=== PATIENT | male | born 1970 | race Caucasian/White ===

== ENCOUNTER → 2019-12-25 08:11 | Outpatient (BNVA) | payer MEDICAID, SELFPAY | PROVIDERS: PCP Family Medicine; Referring Provider Family Medicine; Visit Provider Anesthesiology | DX: G89.4 Chronic pain syndrome (principal); M47.27 Other spondylosis with radiculopathy, lumbosacral region; M51.36 Other intervertebral disc degeneration, lumbar region | CPT/HCPCS: 99202 ==

== ENCOUNTER 2019-12-31 11:00 | Outpatient (RCR) | payer OTHER, SELFPAY | END 2019-12-31 23:55 | disposition home or self-care (01) | LOC: HO.PAOS 11:00 | PROVIDERS: Visit Provider Counselor Mental Health | DX: F43.8 Other reactions to severe stress (principal) ==

== ENCOUNTER 2020-04-30 10:29 | Day surgery (SDC) | payer MEDICAID, SELFPAY ==
[2020-03-23 09:26] VITALS: BMI 32.5
--- NOTE | 2020-04-29 10:24 | HO.ANESPROP2 ---
HPI - Anesthesia Eval Consult details Narrative: 49yo M for Lumbar Spinal Cord Simulation Trial PMFSH Active Problems Active Problems: All Active Problems (Updated 03/23/20 @ 09:29 by Jackie Bentley) Chronic pain syndrome (Acute) Spondylosis of lumbosacral spine with radiculopathy (Acute) Disc degeneration, lumbar (Acute) Past Medical History Medical History (Updated 03/23/20 @ 09:29 by Jackie Bentley) Chronic pain syndrome Disc degeneration, lumbar GERD (gastroesophageal reflux disease) History of headache History of postoperative nausea and vomiting Personal history of COVID-19 Spondylosis of lumbosacral spine with radiculopathy Surgical History Surgical History (Updated 03/23/20 @ 09:29 by Jackie Bentley) Hx laparoscopic cholecystectomy Social History Social History (Updated 03/23/20 @ 09:31 by Jackie Bentley) Household Members: Spouse and Children Alcohol intake: current Alcohol intake frequency: 0-2 drinks per day Alcohol type: beer Smoking Status: Never smoker Meds Allergies Allergy/AdvReac Type Severity Reaction Status Date / Time shellfish derived Allergy Intermediate Hives Verified 03/23/20 09:32 Home Medications Medication Instructions Recorded Confirmed Last Taken Type gabapentin 900 mg PO BEDTIME 03/23/20 03/23/20 Unknown History ibuprofen 800 mg PO Q6H PRN 03/23/20 03/23/20 03/02/20 History melatonin 10 mg PO BEDTIME 03/23/20 03/23/20 Unknown History omeprazole 20 mg PO BEDTIME 03/23/20 03/23/20 Unknown History tadalafil [Cialis] 210 mg PO 2XW 03/23/20 03/23/20 Unknown History verapamil 1 tab PO DAILY PRN 03/23/20 03/23/20 Unknown History Exam Exam Date and Time: April 29, 2020 1024 Height,Weight and Vital Signs: Height 5 ft 9 in Weight 99.79 kg Assessment and Plan Assessment Anesthesia Assessment: Chart Reviewed
--- NOTE | ~2020-04-30 | FL_ITS ---
EXAMINATION: XR FLUOROSCOPY WITH IMAGES CLINICAL INFORMATION: Spinal stimulator trial. COMPARISON: None. TECHNIQUE: Fluoroscopy performed by Dr. Jethro Simmons. Fluoroscopy time: 2.5 minutes DAP: 21.2 Gycm2 Images: 4 FINDINGS: There are two stimulator leads ascending the posterior spinal canal with tips at level mid/lower thoracic spine. No lead fracture or lead kinking in the field of view. There is a small round artifact overlying the images related to the fluoro unit or table. FL/FL guidance in OR IMPRESSION: Fluoroscopy for pain management procedure.
[2020-04-30 10:41] VITALS: BP 133/97; PULSE 71; RESP 18; TEMP 36.5; O2SAT 99
[2020-04-30] MEDS: Lactated Ringers 1,000 ML 100 ML IVCONT (10:55)
--- NOTE | 2020-04-30 11:19 | PM.OP ---
Brief Operative Note Date of Service: 04/30/20 Pre-op diagnosis: Spondylosis lumbar spine, chronic back pain Post-op diagnosis: same Procedure: Trial of Medtronic spinal cord stimulation Implants: None permanent Surgeon: Jethro Simmons MD Anesthesia: MAC Estimated blood loss (mL): 2 Pathology: none sent Condition: stable Disposition: PACU
--- NOTE | 2020-04-30 11:20 | MHC.SHP ---
Pre-Procedural Eval Section A The patient is an INPATIENT: No Changes since office visit: Yes Patient answered all questions The History & Physical has been completed within 30 days and I have reviewed it.: No Section B Chief Complaint: chronic pain syndrome Details of Present Illness: as above Relevant Family History (Specify if Yes): No Relevant Social History: None Present Medications: see Short Stay Collaborative assessment Medical History: No relevant PMH History of Previous Operations: No relevant previous surgery Allergies: Allergies Allergy/AdvReac Type Severity Reaction Status Date / Time shellfish derived Allergy Intermediate Hives Verified 03/23/20 09:32 Review of Systems Sugical H&P ROS: Negative: Constitution, Cardiovascular, Respiratory, Neurological, Psychiatric, Hem-Onc, Allergic/Immunologic, Gastrointestinal, Genitourinary, Musculoskeletal, Integumentary, Endocrine and Eyes/Ears/Nose/Throat Exam Surgical H&P Exam: Normal: HEENT, Normal: Heart, Normal: Lungs, Normal: Extremities, Normal: Abdomen, Normal: Skin and Normal: Neurological Plan Diagnosis/Plan: Unchanged I have reviewed the history and physical and performed a pertinent physical examination on my patient. No changes have occurred unless specified.
[2020-04-30 12:29] VITALS: BP 129/89; PULSE 73; RESP 14; TEMP 36.6; O2SAT 98
[2020-04-30] MEDS: Acetaminophen 325 MG TABLET 975 MG PO (12:36)
--- NOTE | 2020-04-30 12:42 | P.OP_ITS ---
Operative Note Operative Note Date of Service: 04/30/20 Narrative: Mr. Chong is very pleasant 49 years old gentleman who came to OR for the trial of SCS Medtronics in the attempt to treat spondylosis of the lumbar spine. After obtaining informed consent the patient was brought to the operating room, HE was positioned prone on operating table, [place] [employer] monitors were applied and patient was deeply sedated. Time-out was performed delineating correct site, side, the nature of the procedure, patient's allergy, preoperative antibiotic if needed. All operating room staff was participating in OR time-out procedure. He received preoperatively cefazolin 2 g IV approximately 20 minutes before the procedure. Patient's entire back was prepped with ChloraPrep twice and draped with full body fenestrated drape. Sterilely draped C-arm was brought over operating field and square picture of T12 L1 L2 vertebrae were demonstrated on the screen. Attention FIRST was concentrated on the L1-L2 right epidural interspace. The location of the projection of the right pedicle center of the L3 vertebra was found on the skin using C-arm. This location was injected with mixture of lidocaine 2% and Marcaine 0.5% 5 cc. After that 11 blade was used to make a pat on the skin. 10 cm 14 gauge curved introducer epidural needle was inserted through the pat and advanced to the epidural interspace. The advancement of the needle was performed on anterior-posterior and lateral views. Guitar wire and loss of resistance technique were used to locate epidural space. After that epidural electrode array was inserted through the needle in posterior fashion advanced to the T8 posterior epidural space slightly right to the midline. After that location of the projection of the LEFT pedicle center of the L3 vertebra was found on the skin using C-arm. This location was injected with mixture of lidocaine 2% and Marcaine 0.5% 5 cc. After that 11 blade was used to make a pat on the skin. 10 cm 14 gauge curved introducer epidural needle was inserted through the pat and advanced to L1-L2 epidural interspace. The advancement of the needle was performed on anterior posterior and lateral views. Guitar wire and loss of resistance technique were used to locate epidural space. When guitar wire was spread in the epidural fashion, epidural lead was inserted through the needle and advanced to the right epidural T8 posterior space slightly left to the midline. At this moment the epidural leads were connected to the testing device. Patient was awaken and reported stimulation corresponding to his pain. After satisfactory position of the leads were established the needles were withdrawn under x-ray control, the stylette wires were removed from the epidural leads. The anchoring devices were dislodged on the leads and advanced to the level of the skin. The anchoring devices were sutured with two 0-0 silk sutures to the skin of the patient . The leads were connected to testing device. Bacitracin ointment was applied to the entrance point of bilateral needles. Sterile dressing was applied to the patient's back. The testing device was also glued to the patient's back. Upon completion of the procedure the patient was taken to PACU where he recovered and UNEVENTFULLY, he WENT HOME WITHOUT IMMEDIATE COMPLICATIONS. He will continue to use ANTIBIOTICS: Cephalexin 500 mg 2 pills q.6 hours for the next 7 days.
[2020-04-30 12:44] VITALS: BP 108/73; PULSE 72; RESP 16; TEMP 36.6; O2SAT 98
[2020-04-30 12:56] VITALS: BP 126/78; PULSE 68; RESP 16; TEMP 36.6; O2SAT 98
[2020-04-30 13:15] VITALS: BP 128/84; PULSE 64; RESP 16; TEMP 36.6; O2SAT 96
[2020-04-30 13:36] VITALS: BP 125/86; PULSE 64; RESP 16; TEMP 36.6; O2SAT 98
== END 2020-04-30 14:25 | disposition home or self-care (01) ==
PROVIDERS: PCP Family Medicine; Visit Provider Anesthesiology
PROC: (CPT 63650; principal; 2020-04-30 12:00)
DX: M47.27 Other spondylosis with radiculopathy, lumbosacral region (principal); M51.36 Other intervertebral disc degeneration, lumbar region; G89.4 Chronic pain syndrome; Z86.16 Personal history of COVID-19; Z79.899 Other long term (current) drug therapy
CPT/HCPCS: 63650 ×2; C1787; C1897; J0690; J2250; J2405; J3010

== ENCOUNTER → 2020-05-06 13:26 | Outpatient (BNVA) | payer MEDICAID, SELFPAY | PROVIDERS: PCP Family Medicine; Visit Provider Anesthesiology | DX: M47.27 Other spondylosis with radiculopathy, lumbosacral region (principal); M51.36 Other intervertebral disc degeneration, lumbar region; G89.4 Chronic pain syndrome | CPT/HCPCS: 99212 ==

== ENCOUNTER 2020-05-14 06:14 | Day surgery (SDC) | payer MEDICAID, SELFPAY ==
--- NOTE | 2020-05-13 11:03 | HO.ANESPROP2 ---
Documented by User: Jessica Jung 05/13/20 11:06 HPI - Anesthesia Eval Consult details Narrative: 49yo M for Spinal Stimulation Implant,lumbar s/p trial 04/30/20 with MAC PMFSH Active Problems Active Problems: All Active Problems (Updated 03/23/20 @ 09:29 by Jackie Bentley) Chronic pain syndrome (Acute) Spondylosis of lumbosacral spine with radiculopathy (Acute) Disc degeneration, lumbar (Acute) Past Medical History Medical History Chronic pain syndrome Disc degeneration, lumbar GERD (gastroesophageal reflux disease) History of headache History of postoperative nausea and vomiting Personal history of COVID-19 Spondylosis of lumbosacral spine with radiculopathy Surgical History Surgical History Hx laparoscopic cholecystectomy Social History Social History Household Members: Spouse and Children Alcohol intake: current Alcohol intake frequency: 0-2 drinks per day Alcohol type: beer Smoking Status: Never smoker Use of substances other than those prescribed or required for medical reasons: No Have you been hit, kicked, punched, or otherwise hurt by someone within the past year? If so, by whom?: No Advance Directives: No Advance Directives Information Provided: Yes Recently lost weight without trying: No Meds Allergies Allergy/AdvReac Type Severity Reaction Status Date / Time shellfish derived Allergy Intermediate Hives Verified 05/06/20 13:32 Home Medications Medication Instructions Recorded Confirmed Last Taken Type gabapentin 900 mg PO BEDTIME 03/23/20 05/06/20 Unknown History ibuprofen 800 mg PO Q6H PRN 03/23/20 05/06/20 03/02/20 History melatonin 10 mg PO BEDTIME 03/23/20 05/06/20 Unknown History omeprazole 20 mg PO BEDTIME 03/23/20 05/06/20 Unknown History tadalafil [Cialis] 210 mg PO 2XW 03/23/20 05/06/20 Unknown History verapamil 1 tab PO DAILY PRN 03/23/20 05/06/20 Unknown History Exam Exam Date and Time: May 13, 2020 1103 Assessment and Plan Assessment Anesthesia Assessment: Chart Reviewed Documented by User: Fady Montes 05/14/20 07:03 PMFSH Past Medical History Medical History Chronic pain syndrome Disc degeneration, lumbar GERD (gastroesophageal reflux disease) History of headache History of postoperative nausea and vomiting Personal history of COVID-19 Spondylosis of lumbosacral spine with radiculopathy Surgical History Surgical History Hx laparoscopic cholecystectomy Social History Social History Household Members: Spouse and Children Alcohol intake: current Alcohol intake frequency: 0-2 drinks per day Alcohol type: beer Smoking Status: Never smoker Use of substances other than those prescribed or required for medical reasons: No Have you been hit, kicked, punched, or otherwise hurt by someone within the past year? If so, by whom?: No Advance Directives: No Advance Directives Information Provided: Yes Recently lost weight without trying: No Meds Allergies Allergy/AdvReac Type Severity Reaction Status Date / Time shellfish derived Allergy Intermediate Hives Verified 05/06/20 13:32 Home Medications Medication Instructions Recorded Confirmed Last Taken Type gabapentin 900 mg PO BEDTIME 03/23/20 05/06/20 Unknown History ibuprofen 800 mg PO Q6H PRN 03/23/20 05/06/20 03/02/20 History melatonin 10 mg PO BEDTIME 03/23/20 05/06/20 Unknown History omeprazole 20 mg PO BEDTIME 03/23/20 05/06/20 Unknown History tadalafil [Cialis] 210 mg PO 2XW 03/23/20 05/06/20 Unknown History verapamil 1 tab PO DAILY PRN 03/23/20 05/06/20 Unknown History Exam Airway Mallampati Class: II TM Dist: >3cm Neck ROM: Full
--- NOTE | ~2020-05-14 | FL_ITS ---
EXAMINATION: XR FLUOROSCOPY WITH IMAGES CLINICAL INFORMATION: Spinal stimulator implant COMPARISON: Previous exam 04/30/2020 TECHNIQUE: Fluoroscopy performed by Dr. Jethro Simmons. Fluoroscopy time: 3.5 minutes DAP: 23 mGycm2 Images: 3 FINDINGS: Fluoroscopy guidance was provided for spinal stimulator placement in the lower thoracic and upper lumbar spine. FL/FL guidance in OR IMPRESSION: Fluoroscopy guidance for spinal stimulator placement.
[2020-05-14 06:44] VITALS: BP 132/90; PULSE 74; RESP 18; TEMP 36.4; O2SAT 98; BMI 32.5
[2020-05-14] MEDS: Lactated Ringers 1,000 ML 100 ML IVCONT (07:10)
--- NOTE | 2020-05-14 07:15 | MHC.SHP ---
Pre-Procedural Eval Section B Chief Complaint: chronic pain Details of Present Illness: as above Relevant Family History (Specify if Yes): No Relevant Social History: None Present Medications: see Short Stay Collaborative assessment Medical History: No relevant PMH History of Previous Operations: No relevant previous surgery Allergies: Allergies Allergy/AdvReac Type Severity Reaction Status Date / Time shellfish derived Allergy Intermediate Hives Verified 05/06/20 13:32 Review of Systems Sugical H&P ROS: Negative: Constitution, Cardiovascular, Respiratory, Neurological, Psychiatric, Hem-Onc, Allergic/Immunologic, Gastrointestinal, Genitourinary, Musculoskeletal, Integumentary, Endocrine and Eyes/Ears/Nose/Throat Exam Surgical H&P Exam: Normal: HEENT, Normal: Heart, Normal: Lungs, Normal: Extremities, Normal: Abdomen, Normal: Skin and Normal: Neurological Plan Diagnosis/Plan: Unchanged I have reviewed the history and physical and performed a pertinent physical examination on my patient. No changes have occurred unless specified.
[2020-05-14 10:10] VITALS: BP 125/64; PULSE 91; RESP 11; TEMP 36.1; O2SAT 99
--- NOTE | 2020-05-14 10:11 | PM.OP ---
Brief Operative Note Date of Service: 05/14/20 Pre-op diagnosis: Chronic pain syndrome Post-op diagnosis: same Procedure: Implantation of Medtronic spinal cord stimulator Implants: SCS epidural leads and SCS [employer]tron[employer] spinal cord stimulator battery. Surgeon: Jethro Simmons MD Anesthesia: MAC Estimated blood loss (mL): 30 Pathology: none sent Disposition: PACU
--- NOTE | 2020-05-14 10:14 | P.OP_ITS ---
Operative Note Operative Note Date of Service: 05/14/20 Narrative: Mr. Scott is very pleasant 49 years old gentleman who came today into the operating room for implantation of spinal cord stimulator for the treatment of pain related to degenerative disc disease and chronic pain syndrome. He had successful trial of spinal cord stimulation. Preoperatively patient received 2 g cefazolin _approximately 30 minutes before the procedure. After obtaining informed consent patient was brought to the operating room, he was positioned prone on operating table, [place] [employer] monitors were applied and patient was deeply sedated. Time-out was performed delineating correct site, side, the nature of the procedure, patient's allergy, preoperative antibiotic. All operating room staff was participating in OR time-out procedure. Patient's entire back was prepped with ChloraPrep twice and draped with full body drape including Iob[place] film. Sterilely draped C-arm was brought over operating field and square picture of T12, L1, L2 vertebrae as were demonstrated on the screen. THE PROJECTION OF L2-L3 SPINAL PROCESSES TO THE SKIN WERE INFILTRATED WITH LIDOCAINE 2% MIXED WITH BUPIVACAINE 0.5%. Six CM LONG VERTICAL INCISION using a 10 blade scalpel WAS PERFORMED IN STRICT MIDLINE VERTICAL FASHION. THOROUGH HEMOSTASIS WAS PERFORMED using electrocautery and intermittent Vicryl sutures. Thorough tissue dissections was performed until prevertebral fascia was freed from overlying tissues. Attention FIRST was concentrated on the RIGHT L1-L2 epidural interspace. The location of the projection of the right pedicle center of the L3 vertebra was found on the prevertebral fascia using C-arm. This location was injected with mixture of lidocaine 2% and Marcaine 0.5% 5 cc in approximate direction of needle advancement.. After that 10 cm 14 gauge straight introducer epidural needle was inserted through the fascia and advanced toward L1-L2 epidural interspace. The advancement of the needle was performed on anterior posterior and lateral views. Guitar wire and loss of resistance technique were used to locate epidural space. When guitar wire was spread in the epidural fashion, epidural lead was inserted through the skin and it was advanced to T8 position POSTERIOR EPIDURAL SPACE slightly left TO THE MIDLINE. After that location of the projection of the LEFT pedicle center of the L3 vertebra was found -using C-arm. This location was injected with mixture of lidocaine 2% and Marcaine 0.5% 5 cc.. . 10 cm 14 gauge curved introducer epidural needle was inserted through the fascia and advanced to T12-L1 epidural interspace. The advancement of the needle was performed on anterior posterior and lateral views. Guitar wire and loss of resistance technique were used to locate epidural space. When guitar wire was spread in the epidural fashion, e pidural lead was inserted through the needle and advanced to the T9 POSTERIOR EPIDURAL SPACE SLIGHTLY right to the existing line .. THE LOCATION OF BOTH LEADS WAS VERIFIED ON ANTERIOR POSTERIOR AND LATERAL VIEWS. At this moment the patient was awaken and testing was performed. The patient responded well with both locations of the epidural leads. He reported stimulation in the projection of the lumbar spine as well as stimulation in the upper portion of his legs. It response to his pain. After satisfactory position of the leads were established the needles were withdrawn, the stylette wires were removed from the epidural leads. The anchoring devices were dislodged on the leads and advanced to the level of the skin. The anchoring devices were advanced along the epidural leads and disl odged and epidural leads at the level of prevertebral fascia. They were sutured to prevertebral fascia with 2 separate etibone sutures per each anchoring device. The fixating screws was fixed until 3 clicks were heard on each anchoring device. After that the wound was irrigated with copious amount of Vancomycin containing normal saline and packed with Vancomycin soaked 4 x 4. After that attention was concentrated on the right loin of the patient where he wanted battery to be implanted. 6 cm long horizontal incision was performed 3 cm below the lowest portion of the right 12th rib. Subcutaneous pocket was formed not deeper than 2 cm under the skin using dull dissection and electrocautery dissection. Thorough hemostasis was obtained. The wound was irrigated with copious amount of Vancomycin contained normal saline. Tunneling device was used to connect the 2 wounds and epidural leads were dislodged into side wound. They were connected to the Nevro battery and locked with a locking screwdriver device. Impedance was checked and appeared to be satisfactory. After that the anchoring sutures ethibond were applied in the most superior medial and most superior lateral corners of the wound. After that they were connected to the anchoring holes on the body of the battery, the epidural leads were gathered behind the body of the-battery, the battery and the leads were inserted into the pocket wound and after that the anchoring 2 sutures were tied. The wounds were irrigated again with Vancomycin containing normal saline, thorough hemostasis was checked, and after that the wounds were closed using 0 Vicryl. After that the skin edges wore approximated using 2 0 Vicryl, argenis were applied to the wounds at the level of the skin. Bacitracin ointment was applies to the level of the argenis and sterile dressings were applied to the staple lines. Medipore Tape was applied to hold the dressing to the patient's skin. Abdominal binder to wear was provided to the patient. At this moment patient was awaken and transferred to the bed. He was recovering uneventfully in PACU.
[2020-05-14] MEDS: Acetaminophen 325 MG TABLET 975 MG PO (10:20)
[2020-05-14 10:25] VITALS: BP 134/83; PULSE 74; RESP 20; O2SAT 100
[2020-05-14 10:40] VITALS: BP 126/60; PULSE 74; RESP 18; TEMP 36.3; O2SAT 99
== END 2020-05-14 11:39 | disposition home or self-care (01) ==
PROVIDERS: PCP Family Medicine; Visit Provider Anesthesiology
PROC: (CPT 63685; principal; 2020-05-14 07:30)
DX: G89.4 Chronic pain syndrome (principal); M47.27 Other spondylosis with radiculopathy, lumbosacral region; M51.16 Intervertebral disc disorders with radiculopathy, lumbar region; Z79.899 Other long term (current) drug therapy
CPT/HCPCS: 63685; 63650 ×2; C1778; C1787; C1820; J0690; J2250; J3010; J3370

== ENCOUNTER → 2020-05-20 10:17 | Outpatient (BNVA) | payer MEDICAID, SELFPAY | PROVIDERS: PCP Family Medicine; Visit Provider Anesthesiology | DX: M51.36 Other intervertebral disc degeneration, lumbar region (principal); M47.27 Other spondylosis with radiculopathy, lumbosacral region; G89.4 Chronic pain syndrome | CPT/HCPCS: 99212 ==

== ENCOUNTER → 2020-05-26 09:50 | Outpatient (BNVA) | payer MEDICAID, SELFPAY | PROVIDERS: PCP Family Medicine; Visit Provider Anesthesiology | DX: M51.36 Other intervertebral disc degeneration, lumbar region (principal); M47.27 Other spondylosis with radiculopathy, lumbosacral region; G89.4 Chronic pain syndrome; Z79.899 Other long term (current) drug therapy | CPT/HCPCS: 99212 ==

== ENCOUNTER 2020-06-09 13:04 | Outpatient (REF) | payer MEDICAID, SELFPAY ==
[2020-06-09 14:12] LABS: MANUAL DIFF FLAG NO
[2020-06-09 14:20] LABS: Basophils Percent Auto 0.3 % (0-2); Eosinophils Absolute Auto 0.3 X10*3/uL (0.0-0.4); Eosinophils Percent Auto 3.2 % (0-4); Hematocrit 44.4 % (42-52); Hemoglobin 14.8 g/dl (14.0-18.0); Imm Gran Abs Auto 0.02 X10*3/uL (0.00-0.03); Imm Gran Pct Auto 0.3 % (0.0-0.4); Lymphocytes Absolute Auto 2.5 X10*3/uL (1.2-4.9); Lymphocytes Percent Auto 31.3 % (20-40); Mean Corpuscular HGB Conc 33.3 g/dl (31.0-36.0); Mean Corpuscular Hemoglobin 28.7 pg (27.0-33.0); Mean Platelet Volume 9.7 fL (9.4-12.4); Monocytes Absolute Auto 0.8 X10*3/uL (0.1-1.2); Neutrophils Absolute Auto 4.4 X10*3/uL (2.0-8.3); Neutrophils Percent Auto 54.9 % (45-73); Platelet Count 312 X10*3/uL (160-400); Red Blood Count 5.16 X10*6/uL (4.60-5.80); Red Cell Distribution Width 12.1 % (11.0-16.0); White Blood Count 7.9 X10*3/uL (4.8-10.8)
[2020-06-09 14:38] LABS: Blood Urea Nitrogen 12 mg/dL (9-16); Estimated Glomerular Filt Rate > 60
== END 2020-06-09 13:05 | disposition home or self-care (01) ==
LOC: HO.LAB 13:04
PROVIDERS: PCP Family Medicine; Visit Provider Anesthesiology
DX: S06.4X9A Epidural hemorrhage with loss of consciousness of unspecified duration, initial encounter (principal); M79.606 Pain in leg, unspecified; G89.4 Chronic pain syndrome; M47.27 Other spondylosis with radiculopathy, lumbosacral region; M51.36 Other intervertebral disc degeneration, lumbar region; R33.9 Retention of urine, unspecified; Z79.899 Other long term (current) drug therapy
CPT/HCPCS: 36415; 82565; 84520; 85025; 99212

== ENCOUNTER 2020-06-10 18:45 | Outpatient (REF) | payer MEDICAID, SELFPAY ==
--- NOTE | ~2020-06-10 | MR_ITS ---
EXAMINATION: MR LUMBAR SPINE WITHOUT AND WITH CONTRAST CLINICAL INFORMATION: Pain and leg, unspecified. COMPARISON: None TECHNIQUE: MRI of the lumbar spine was obtained using routine sequences without and with intravenous contrast. A total of 10 mL Gadavist was intravenously administered. Patient has an MRI safe stimulator in place. FINDINGS: Lumbar vertebral bodies maintain normal heights and alignment. The disc heights are preserved. No bone marrow edema is seen. A spinal cord stimulator is seen entering the spinal canal at the L1-L2 level and travels the dorsal aspect of the spinal canal. The distal spinal cord is grossly normal in signal. The conus medullaris terminates normally at the L1 level. No abnormal enhancement is seen within the thecal sac. Allowing for the postoperative changes the extraspinal soft tissues are unremarkable. SPINAL LEVELS: L1-L2: Right paracentral protrusion focally indenting the ventral thecal sac without causing significant narrowing the spinal canal. No neural foraminal stenosis. L2-L3: Central annular fissuring. No spinal canal or neural foraminal stenosis. L3-L4: No posterior disc abnormality. No spinal canal or neural foraminal stenosis. L4-L5: Mild disc bulging. Minimal narrowing of the left neural foramen. No spinal canal stenosis. L5-S1: No posterior disc abnormality. Mild facet arthropathy. No spinal canal or neural foraminal stenosis. MR/MR lumbar spine wo/w con IMPRESSION: Spinal cord stimulator in place. Right paracentral protrusion seen at L1-L2 without associated narrowing of the spinal canal. Annular fissuring seen at L2-L3. No nerve root compression is noted. No abnormal enhancement.
== END 2020-06-10 18:46 | disposition home or self-care (01) ==
LOC: HO.MRI 18:45
PROVIDERS: Visit Provider Anesthesiology
DX: S06.4X9A Epidural hemorrhage with loss of consciousness of unspecified duration, initial encounter (principal); M79.606 Pain in leg, unspecified; R33.9 Retention of urine, unspecified
CPT/HCPCS: 72158; A9585

== ENCOUNTER 2020-06-16 10:59 | Outpatient (REF) | payer MEDICAID, SELFPAY ==
--- NOTE | ~2020-06-16 | XR_ITS ---
EXAMINATION: XR THORACIC SPINE CLINICAL INFORMATION: Chronic pain syndrome COMPARISON: None TECHNIQUE: 3 views of the thoracic spine were obtained. FINDINGS: There is no fracture or bone destruction seen and the vertebral alignment is normal. There is no disc space narrowing. Small endplate osteophytes present throughout the thoracic spine. There is no abnormality of the paraspinal soft tissues. Epidural spinal stimulator leads terminating within the dorsal epidural space at the level of T8/T9. XR/XR thoracic spine 3V IMPRESSION: No acute findings. Small endplate osteophytes present throughout the thoracic spine.
== END 2020-06-16 11:00 | disposition home or self-care (01) ==
LOC: HO.XRAY 10:59
PROVIDERS: PCP Family Medicine; Visit Provider Anesthesiology
DX: G89.4 Chronic pain syndrome (principal); M47.27 Other spondylosis with radiculopathy, lumbosacral region; M51.36 Other intervertebral disc degeneration, lumbar region; M79.662 Pain in left lower leg; M79.661 Pain in right lower leg; R33.9 Retention of urine, unspecified; Z91.013 Allergy to seafood; Z86.19 Personal history of other infectious and parasitic diseases
CPT/HCPCS: 72072; 99212

== ENCOUNTER 2020-07-06 10:33 | Outpatient (REF) | payer MEDICAID, SELFPAY ==
--- NOTE | ~2020-07-06 | US_ITS ---
EXAMINATION: US VENOUS ULTRASOUND WITH DOPPLER LOWER EXTREMITY, bilateral CLINICAL INFORMATION: Bilateral pain in both thighs. COMPARISON: None TECHNIQUE: Ultrasound of the deep veins is performed from the hip to the calf with compression sonography and color and pulse Doppler assessment. Spectral analysis with color-flow imaging is performed. FINDINGS: There is normal venous compression and respiratory variation and augmented flow. The visualized common femoral vein, superficial femoral vein, profunda femoral vein, popliteal vein, and the trifurcation region shows no evidence of deep venous thrombosis. There is no significant popliteal fossa cyst. There is a small lymph node in the right groin measuring 3.4 x 0.7 x 2.1 cm. If the patient's symptoms persist, followup ultrasound in 5 days 7 days might be of value to exclude proximal propagation from a non-visualized calf vein. US/US venous duplex LE IMPRESSION: No DVT demonstrated in bilateral lower extremity.
== END 2020-07-06 10:34 | disposition home or self-care (01) ==
LOC: HO.HMGCX 10:33
PROVIDERS: Visit Provider Anesthesiology
DX: M79.651 Pain in right thigh (principal); M79.652 Pain in left thigh
CPT/HCPCS: 93971

== ENCOUNTER → 2020-07-07 12:50 | Outpatient (BNVA) | payer MEDICAID, SELFPAY | PROVIDERS: PCP Family Medicine; Visit Provider Anesthesiology | DX: M79.606 Pain in leg, unspecified (principal); M47.27 Other spondylosis with radiculopathy, lumbosacral region; M51.36 Other intervertebral disc degeneration, lumbar region; G89.4 Chronic pain syndrome | CPT/HCPCS: 99212 ==

== ENCOUNTER → 2020-12-15 10:42 | Outpatient (BNVA) | payer MEDICAID, SELFPAY | PROVIDERS: PCP Family Medicine; Visit Provider Anesthesiology | DX: M79.606 Pain in leg, unspecified (principal); M47.27 Other spondylosis with radiculopathy, lumbosacral region; M51.36 Other intervertebral disc degeneration, lumbar region; G89.4 Chronic pain syndrome | CPT/HCPCS: 99212 ==

== ENCOUNTER 2021-01-18 06:27 | Outpatient (REF) | payer MEDICAID, SELFPAY ==
--- NOTE | ~2021-01-18 | FL_ITS ---
EXAMINATION: XR FLUOROSCOPY WITH IMAGES CLINICAL INFORMATION: M47.27 - Other spondylosis with radiculopathy, lumbosacral COMPARISON: Fluoroscopic spot views 05/14/2020 TECHNIQUE: Fluoroscopy performed by Dr. Jethro Simmons. Fluoroscopy time: 0.7 minutes DAP: 9.64 Gycm2 Images: 6 FINDINGS: There are spinal needles overlying the bilateral outer L3, L4, and L5 neural foramen. There is contrast seen in the respective nerve sheaths. Some early transforaminal epidural extension is suggested. No visible vascular communication. Spinal stimulator electrode are again noted, partially in the [id number] lower lumbar spine. FL/FL guidance in treatment room IMPRESSION: Fluoroscopy for pain management procedures.
== END 2021-01-18 06:28 | disposition home or self-care (01) ==
LOC: HO.RADIR 06:27
PROVIDERS: Visit Provider Anesthesiology
DX: G89.4 Chronic pain syndrome (principal); M47.27 Other spondylosis with radiculopathy, lumbosacral region; M51.36 Other intervertebral disc degeneration, lumbar region
CPT/HCPCS: 64493; 64494; J3300; Q9967

== ENCOUNTER → 2021-01-26 13:40 | Outpatient (BNVA) | payer MEDICAID, SELFPAY | PROVIDERS: PCP Family Medicine; Visit Provider Anesthesiology | DX: M79.605 Pain in left leg (principal); M79.604 Pain in right leg; M47.27 Other spondylosis with radiculopathy, lumbosacral region; M51.36 Other intervertebral disc degeneration, lumbar region; G89.4 Chronic pain syndrome | CPT/HCPCS: 99212 ==

== ENCOUNTER → 2021-02-16 16:28 | Outpatient (BNVA) | payer MEDICAID, SELFPAY | PROVIDERS: PCP Family Medicine; Visit Provider Anesthesiology | DX: M79.606 Pain in leg, unspecified (principal); M47.27 Other spondylosis with radiculopathy, lumbosacral region; M51.36 Other intervertebral disc degeneration, lumbar region; G89.4 Chronic pain syndrome | CPT/HCPCS: 99212 ==

== ENCOUNTER → 2021-03-10 09:25 | Outpatient (BNVA) | payer MEDICAID, SELFPAY | PROVIDERS: PCP Family Medicine; Visit Provider Anesthesiology | DX: M79.606 Pain in leg, unspecified (principal); M47.27 Other spondylosis with radiculopathy, lumbosacral region; M51.36 Other intervertebral disc degeneration, lumbar region; G89.4 Chronic pain syndrome | CPT/HCPCS: 99212 ==

== ENCOUNTER 2021-03-29 06:11 | Outpatient (REF) | payer MEDICAID, SELFPAY ==
--- NOTE | ~2021-03-29 | FL_ITS ---
EXAMINATION: XR FLUOROSCOPY WITH IMAGES CLINICAL INFORMATION: Chronic pain syndrome. COMPARISON: None. TECHNIQUE: Fluoroscopy performed by Ingrid Rico. Fluoroscopy time: 0.1 minutes DAP: 1.07 Gycm2 Images: 2 FINDINGS: There is intrathecal needle positioned posterior to L2-L3 disc level. There are 2 neural stimulators extending from the L1-L2 disc level cephalad. FL/FL guidance in treatment room IMPRESSION: Fluoroscopy guidance was provided to referring physician for pain management.
== END 2021-03-29 06:12 | disposition home or self-care (01) ==
LOC: HO.RADIR 06:11
PROVIDERS: Visit Provider Anesthesiology
DX: G89.4 Chronic pain syndrome (principal); M47.27 Other spondylosis with radiculopathy, lumbosacral region; M51.36 Other intervertebral disc degeneration, lumbar region; M06.9 Rheumatoid arthritis, unspecified
CPT/HCPCS: 62323; J1170; Q9967

== ENCOUNTER → 2021-04-06 11:38 | Outpatient (BNVA) | payer MEDICAID, SELFPAY | PROVIDERS: PCP Family Medicine; Visit Provider Anesthesiology | DX: M47.27 Other spondylosis with radiculopathy, lumbosacral region (principal); M51.36 Other intervertebral disc degeneration, lumbar region; M06.9 Rheumatoid arthritis, unspecified; G89.4 Chronic pain syndrome | CPT/HCPCS: 99212 ==

== ENCOUNTER 2021-04-12 06:04 | Outpatient (REF) | payer MEDICAID, SELFPAY ==
--- NOTE | ~2021-04-12 | FL_ITS ---
EXAMINATION: XR FLUOROSCOPY WITH IMAGES CLINICAL INFORMATION: G89.4 - Chronic pain syndrome COMPARISON: Radiographs thoracic spine 06/16/2020, MRI lumbar spine 06/10/2020 TECHNIQUE: Fluoroscopy performed by Dr. Jethro Simmons. Fluoroscopy time: 0.1 minutes DAP: 1.81 Gycm2 Images: 2 FINDINGS: There is interlaminar spinal needle seen at level of L2-L3. There are electrode wires ascending the posterior spinal canal entering spine above the level of procedure. FL/FL guidance in treatment room IMPRESSION: Fluoroscopy for pain management procedure.
== END 2021-04-12 06:05 | disposition home or self-care (01) ==
LOC: HO.RADIR 06:04
PROVIDERS: Visit Provider Anesthesiology
DX: G89.4 Chronic pain syndrome (principal); M47.27 Other spondylosis with radiculopathy, lumbosacral region; M51.36 Other intervertebral disc degeneration, lumbar region; M06.9 Rheumatoid arthritis, unspecified; Z91.013 Allergy to seafood
CPT/HCPCS: 62323; J2270; Q9967

== ENCOUNTER → 2021-04-18 11:35 | Outpatient (BNVA) | payer MEDICAID, SELFPAY | PROVIDERS: PCP Family Medicine; Visit Provider Anesthesiology | DX: M47.27 Other spondylosis with radiculopathy, lumbosacral region (principal); M51.36 Other intervertebral disc degeneration, lumbar region; M06.9 Rheumatoid arthritis, unspecified; G89.4 Chronic pain syndrome | CPT/HCPCS: 99212 ==

== ENCOUNTER 2021-08-19 09:04 | Day surgery (SDC) | payer MEDICAID, SELFPAY ==
--- NOTE | 2021-08-18 10:17 | HO.ANESPROP2 ---
Documented by User: Jessica Jung NP 08/18/21 10:19 HPI - Anesthesia Eval Consult details Narrative: 51yo M for Spinal Cord Stimulation explantation s/p spinal stim implant 05/2020 with MAC PMFSH Active Problems Active Problems: All Active Problems (Updated 07/07/20 @ 14:12 by Jethro Simmons MD) Rheumatoid arthritis (Acute) Bilateral thigh pain (Acute) Urinary retention (Acute) Lower extremity pain (Acute) Chronic pain syndrome (Acute) Spondylosis of lumbosacral spine with radiculopathy (Acute) Disc degeneration, lumbar (Acute) Past Medical History Medical History (Updated 07/07/20 @ 14:12 by Jethro Simmons MD) Chronic pain syndrome Disc degeneration, lumbar GERD (gastroesophageal reflux disease) History of headache History of postoperative nausea and vomiting Lower extremity pain Personal history of COVID-19 Rheumatoid arthritis Spondylosis of lumbosacral spine with radiculopathy Urinary retention Surgical History Surgical History Hx laparoscopic cholecystectomy Social History Social History Household Members: Spouse and Children Are you a primary complex care nurse practitioner to a significant other at home: No Do you presently have visiting nurse or other home services: No Alcohol intake: current Alcohol intake frequency: 0-2 drinks per day Alcohol type: beer Patient Tobacco Use Status: Never used Tobacco Use of substances other than those prescribed or required for medical reasons: No Are you DNR?: No Advance Directives: No Advance Directives Information Provided: Yes Recently lost weight without trying: Unsure Nutrition Risks: No Nutritional Risk Meds Allergies Allergy/AdvReac Type Severity Reaction Status Date / Time shellfish derived Allergy Intermediate Hives Verified 04/18/21 11:36 Home Medications Medication Instructions Recorded Confirmed Last Taken Type ibuprofen 800 mg tablet 800 mg PO Q6H PRN Back Pain 03/23/20 02/16/21 03/02/20 History omeprazole 20 mg capsule,delayed 20 mg PO BEDTIME 03/23/20 02/16/21 Unknown History release tadalafil 20 mg tablet (Cialis) 210 mg PO 2XW 03/23/20 02/16/21 Unknown History Exam Exam Date and Time: August 18, 2021 1017 Assessment and Plan Assessment Anesthesia Assessment: Chart Reviewed Documented by User: Zaheer Mejia MD 08/19/21 10:54 PMFSH Past Medical History Medical History (Updated 07/07/20 @ 14:12 by Jethro Simmons MD) Chronic pain syndrome Disc degeneration, lumbar GERD (gastroesophageal reflux disease) History of headache History of postoperative nausea and vomiting Lower extremity pain Personal history of COVID-19 Rheumatoid arthritis Spondylosis of lumbosacral spine with radiculopathy Urinary retention Family History Family history of problems with anesthesia: No Surgical History Surgical History Hx laparoscopic cholecystectomy History of Problems with Anesthesia: No Social History Social History Household Members: Spouse and Children Are you a primary complex care nurse practitioner to a significant other at home: No Do you presently have visiting nurse or other home services: No Alcohol intake: current Alcohol intake frequency: 0-2 drinks per day Alcohol type: beer Patient Tobacco Use Status: Never used Tobacco Use of substances other than those prescribed or required for medical reasons: No Are you DNR?: No Advance Directives: No Advance Directives Information Provided: Yes Recently lost weight without trying: Unsure Nutrition Risks: No Nutritional Risk Meds Allergies Allergy/AdvReac Type Severity Reaction Status Date / Time shellfish derived Allergy Intermediate Hives Verified 04/18/21 11:36 Home Medications Medication Instructions Recorded Confirmed Last Taken Type ibuprofen 800 mg tablet 800 mg PO Q6H PRN Back Pain 03/23/20 02/16/21 03/02/20 History omeprazole 20 mg capsule,delayed 20 mg PO BEDTIME 03/23/20 02/16/21 Unknown History release tadalafil 20 mg tablet (Cialis) 210 mg PO 2XW 03/23/20 02/16/21 Unknown History Exam Airway Mallampati Class: II TM Dist: >3cm Neck ROM: Full Loose/Missing/Broken Teeth: No Heart: rrr Lungs: clear Assessment and Plan Final Anesthetic Review Family History of Problems with Anesthesia: No History of Problems with Anesthesia: No NPO: Yes Final Preanesthetic Review: No Changes in Pt Med Stat, Meds/Allgs Chart Reviewed, Consent Obtained/Reviewed and Anes Risks/Benef Reviewed Patient Risk: Low Procedure Risk: Low Anesthetic Plan Anesthetic Plan: GA Disposition: Standard PACU
[2021-08-19] VITALS (10 sets, daily range): BP systolic 108–130; BP diastolic 76–92; PULSE 66–86; RESP 14–16; TEMP 36.3–36.8; O2SAT 95–98; BMI 30.8
--- NOTE | 2021-08-19 09:39 | PC.NURSE ---
MD FRANCO BY BEDSIDE EVALUATING PATIENT. FOR AN UPPER RESP PROBLEM. allergies per patient. lungs lear. no sob or resp distress. usually takes an allergy pill daily but did not today.
[2021-08-19] MEDS: Lactated Ringers 1,000 ML 100 ML IVCONT (10:05)
--- NOTE | 2021-08-19 10:41 | P.HPSUR_ITS ---
Pre-Procedural Eval Section A Date of Service: 08/19/21 The patient is an INPATIENT: No Changes since office visit: Yes Patient answered all questions The History & Physical has been completed within 30 days and I have reviewed it.: No Section B Chief Complaint: Chronic pain syndrome Details of Present Illness: as above plus presence of the [employer] Relevant Family History (Specify if Yes): No Relevant Social History: None Present Medications: see Short Stay Collaborative assessment Medical History: No relevant PMH History of Previous Operations: No relevant previous surgery Allergies: Allergies Allergy/AdvReac Type Severity Reaction Status Date / Time shellfish derived Allergy Intermediate Hives Verified 04/18/21 11:36 Review of Systems Sugical H&P ROS: Negative: Constitution, Cardiovascular, Respiratory, Neurological, Psychiatric, Hem-Onc, Allergic/Immunologic, Gastrointestinal, Genitourinary, Musculoskeletal, Integumentary, Endocrine and Eyes /Ears/Nose/Throat Exam Surgical H&P Exam: Normal: HEENT, Normal: Heart, Normal: Lungs, Normal: Extremities, Normal: Abdomen, Normal: Skin and Normal: Neurological Plan Diagnosis/Plan: Unchanged I have reviewed the history and physical and performed a pertinent physical examination on my patient. No changes have occurred unless specified.
[2021-08-19] MEDS: ondansetron HCL 4 MG/2 ML VIAL IVPUSH (12:27)
--- NOTE | 2021-08-19 12:44 | W.PM.OPN ---
Operative Note Operative Note Date of Service: 08/19/21 Narrative: ?Mr. Scott is very pleasant 51 years old gentleman who came today into the operating room for explantation of spinal cord stimulator for the treatment of pain related to degenerative disc disease and chronic pain syndrome.? He had successful trial of spinal cord stimulation and subsequent implant, he was using the device at the beginning however it quickly faded in effectiveness. Trial of DTM by [employer] did not improve his pain control. He continued to feel the stimulation in the appropriate panfull areas but did not receive any benefits fromthe device. He requested to remove the the device. He was explained multiple times including this morning that it is not necessary to remove the device, he could live with the device without charging it - he continued to insist the explantation. After obtaining informed consent patient was brought to the operating room, he was positioned supine on the stretcher, [employer] monitors were applied and patient was induced with GETA. He was transferred on the OR table prone, all pressure points were protected. Time-out was performed delineating correct site, side, the nature of the procedure, patient's allergy, preoperative antibiotic.? All operating room staff was participating in OR time-out procedure. Patient's entire back was prepped with ChloraPrep twice and draped with full body drape .? Sterilely draped C-arm was in the room on stand-by. Local anesthetic mixture of lidocain and ropivacaine was injected along the scar in the right loin. 6 cm long horizontal incision was performed onto the previuos scar. wound was widened and deepened using scalpel and metzenbaum scissors, thorough hemostasis was performed using electrocautery. care was taken to avoid contact of the tip of the electrocautery with the parts of the device. The body of the battery was located in the wound and anchoring sutures wee severed, the device was delivered to the level of the skin and epidural leads were severed with suture scissors. After that the gentle tagging force was applied to the epidural leads and both of them were easily extracted from the spinal columns and into the battery pockets. The tips of the leads were intact . they were sent to pathology for gross examination. The EVE drain system was used to drain the wound, it was used to sánchez the s/q tissues and the skin at the lowest medial corner of the pocket. the EVE drain was connected to the draining bulb and the draining portion was trimmed appropriately to accommodate the size of the pocket. The wound was irrigated with Vancomycin containing normal saline, thorough hemostasis was checked, and after that the wound was closed using 0 Vicryl.? After that the skin edges were approximated using 2 0 Vicryl, argenis were applied to the wounds at the level of the skin.? Bacitracin ointment was applies to the level of the argenis and sterile dressings were applied to the staple lines.? Medipore Tape was applied to hold the dressing to the patient's skin.?The patient was transferred on the stretcher supine, awaken extubated and transferred to PACU.? He was recovering uneventfully in PACU. ?
== END 2021-08-19 15:15 | disposition home or self-care (01) ==
PROVIDERS: PCP Family Medicine; Visit Provider Anesthesiology
PROC: (CPT 63661; principal; 2021-08-19 10:40)
DX: T85.193A Other mechanical complication of implanted electronic neurostimulator, generator, initial encounter (principal); Y84.8 Other medical procedures as the cause of abnormal reaction of the patient, or of later complication, without mention of misadventure at the time of the procedure; Y92.9 Unspecified place or not applicable; M51.36 Other intervertebral disc degeneration, lumbar region; G89.4 Chronic pain syndrome; M47.27 Other spondylosis with radiculopathy, lumbosacral region; M79.606 Pain in leg, unspecified; M06.9 Rheumatoid arthritis, unspecified; Z86.16 Personal history of COVID-19
CPT/HCPCS: 63661; 63688; 88300; J0690; J1100; J2250; J2405; J2550; J2795; J3010; J3370

== ENCOUNTER → 2021-08-25 09:30 | Outpatient (BNVA) | payer MEDICAID, SELFPAY | PROVIDERS: PCP Family Medicine; Visit Provider Anesthesiology | DX: G89.4 Chronic pain syndrome (principal); M51.36 Other intervertebral disc degeneration, lumbar region; M47.27 Other spondylosis with radiculopathy, lumbosacral region; M06.9 Rheumatoid arthritis, unspecified; Z96.82 Presence of neurostimulator | CPT/HCPCS: 99212 ==

== ENCOUNTER → 2021-08-31 13:29 | Outpatient (BNVA) | payer MEDICAID, SELFPAY | PROVIDERS: PCP Family Medicine; Visit Provider Anesthesiology | DX: G89.4 Chronic pain syndrome (principal); M47.27 Other spondylosis with radiculopathy, lumbosacral region; M51.36 Other intervertebral disc degeneration, lumbar region; M06.9 Rheumatoid arthritis, unspecified | CPT/HCPCS: 99212 ==